=== PATIENT | male | born 1960 | race Caucasian/White ===

== ENCOUNTER 2017-01-25 05:36 | Emergency (ER) | payer MEDICARE, OTHER ==
--- NOTE | ~2017-01-25 | EKG ---
PATIENT: RAÚL MCDUFFIE UNIT #: [id number] Ventricular Rate: 76 BPM Atrial Rate: 76 BPM P-R Interval: 180 ms QRS Duration: 94 ms Q-T Interval: 388 ms QTC Calculation(Bezet): 436 ms P [place]: 58 degrees Calculated R [place]: -5 degrees Calculated T [place]: 9 degrees Diagnosis Line: Normal sinus rhythm Diagnosis Line: Normal ECG Diagnosis Line: When compared with ECG of 21-NOV-2015 16:33, Diagnosis Line: No significant change was found Diagnosis Line: Confirmed by KATIA HENRY MD ([id number]) on 01/28/2017 Diagnosis Line: 9:25:45 AM INTERPRETING MD: ELIANE MARTINEZ
[2017-01-25 05:29] LABS: BASOPHIL# 0.1 X10e3 (0-0.3); EOSINOPHIL# 0.3 X10e3 (0-0.7); EOSINOPHIL% 4.2 % (0.0-7.0); HEMATOCRIT 41.6 % (38.0-50.0); HEMOGLOBIN 14.4 gm/dL (13.0-16.0); LYMPHOCYTE# 3.5 X10e3 (1.0-3.5); LYMPHOCYTE% 53.9 % (17.0-45.0); MEAN CELL VOLUME 86.2 FL (83-96); MEAN CORPUSCULAR HEMOGLOBIN 29.8 PG (28-34); MEAN CORPUSCULAR HGB CONC 34.6 g/dL (30-36); MEAN PLATELET VOLUME 7.6 FL (6.5-11.5); MONOCYTE# 0.5 X10e3 (0-1.0); MONOCYTE% 7.3 % (3.0-12.0); NEUTROPHIL# 2.2 X10e3 (1.5-7.1); NEUTROPHIL% 33.6 % (40-75); PLATELET COUNT 263 X10e3 (140-420); RED BLOOD COUNT 4.82 X10e (3.90-5.60); RED CELL DISTRIBUTION WIDTH 12.4 % (11.0-15.5); WHITE BLOOD COUNT 6.5 X10e3 (4.0-10.5)
[2017-01-25 05:30] LABS: DIFF IND NO
[~2017-01-25 05:36] MED LIST: ALPRAZOLAM; ALPRAZOLAM PO; BIAXIN PO; CARAFATE1 G PO; COLACE; COLACE PO; DICYCLOMINE HCL20 MG PO; LORTAB 10/500 T1 TAB; LORTAB 10/500 T1 TAB PO; LORTAB 101 TAB 10/5 PO; LORTAB 5/500 TA1 TA1; MIRALAX17 G1 PO; OMEPRAZOLE20 M2 PO; OMEPRAZOLE40 MG PO; PHENERGAN25 MG PO; PRILOSEC20 MG PO; PRINCIPEN500 M1 PO; VITAMIN D50000 UNIT PO; XANAX2 MG PO; ZANTAC PO; [UNRECOGNIZED DRUG - REMARK]
[2017-01-25 05:39] LABS: POC - CKMB 2.7 ng/mL (0.0-7.9); POC - TROPONIN <0.05 ng/mL (<=0.05)
[2017-01-25 05:40] LABS: BUN/CREATININE RATIO 21.11; CALCIUM SERUM 8.6 mg/dL (8.4-10.2); CREATININE SERUM 0.9 mg/dL (0.6-1.4); GLOM FILT RATE Estimated 94.5 mL/min (>60); POTASSIUM 3.6 mmol/L (3.5-5.1)
== END 2017-01-25 06:22 | disposition home or self-care (01) ==
LOC: SED 05:36
PROVIDERS: Emergency Medicine
DX: R07.9 Chest pain, unspecified (principal); F41.9 Anxiety disorder, unspecified
CPT/HCPCS: 80048; 82553; 84484; 85025; 93005; 99284

== ENCOUNTER 2017-02-03 02:22 | Emergency (ER) | payer MEDICARE, OTHER ==
--- NOTE | ~2017-02-03 | EKG ---
PATIENT: RAÚL MCDUFFIE UNIT #: [id number] Ventricular Rate: 74 BPM Atrial Rate: 74 BPM P-R Interval: 158 ms QRS Duration: 92 ms Q-T Interval: 394 ms QTC Calculation(Bezet): 437 ms P [place]me[place]: 64 degrees Calculated R [place]me[place]: -3 degrees Calculated T Hoffme[place]: 27 degrees Diagnosis Line: Normal sinus rhythm Diagnosis Line: Normal ECG Diagnosis Line: When compared with ECG of 25-JAN-2017 05:02, Diagnosis Line: No significant change was found Diagnosis Line: Confirmed by KATIA HENRY MD ([id number]) on 02/04/2017 Diagnosis Line: 9:40:39 AM INTERPRETING MD: ELAINE MARTINEZ
[2017-02-03 03:06] LABS: BASOPHIL# 0.1 X10e3 (0-0.3); EOSINOPHIL# 0.3 X10e3 (0-0.7); EOSINOPHIL% 3.6 % (0.0-7.0); HEMATOCRIT 44.1 % (38.0-50.0); HEMOGLOBIN 15.1 gm/dL (13.0-16.0); LYMPHOCYTE% 53.4 % (17.0-45.0); MEAN CELL VOLUME 86.5 FL (83-96); MEAN CORPUSCULAR HEMOGLOBIN 29.7 PG (28-34); MEAN CORPUSCULAR HGB CONC 34.3 g/dL (30-36); MEAN PLATELET VOLUME 7.5 FL (6.5-11.5); MONOCYTE# 0.5 X10e3 (0-1.0); MONOCYTE% 6.8 % (3.0-12.0); NEUTROPHIL# 2.6 X10e3 (1.5-7.1); NEUTROPHIL% 35.2 % (40-75); PLATELET COUNT 276 X10e3 (140-420); RED CELL DISTRIBUTION WIDTH 12.7 % (11.0-15.5); WHITE BLOOD COUNT 7.4 X10e3 (4.0-10.5)
[2017-02-03 03:07] LABS: DIFF IND NO
[2017-02-03 03:15] LABS: POC - CKMB 2.1 ng/mL (0.0-7.9); POC - TROPONIN <0.05 ng/mL (<=0.05)
[2017-02-03 03:17] LABS: BUN/CREATININE RATIO 14.44; CALCIUM SERUM 9.2 mg/dL (8.4-10.2); CREATININE SERUM 0.9 mg/dL (0.6-1.4); GLOM FILT RATE Estimated 94.5 mL/min (>60); POTASSIUM 4.1 mmol/L (3.5-5.1)
== END 2017-02-03 03:35 | disposition home or self-care (01) ==
LOC: SED 02:22
PROVIDERS: Emergency Medicine
DX: F41.9 Anxiety disorder, unspecified (principal); F32.9 Major depressive disorder, single episode, unspecified; Z85.038 Personal history of other malignant neoplasm of large intestine; Z90.49 Acquired absence of other specified parts of digestive tract
CPT/HCPCS: 36415; 80048; 82553; 84484; 85025; 93005; 99283